=== PATIENT | male | born 1950 | race Caucasian/White ===

== ENCOUNTER 2018-12-13 15:17 | Outpatient (REF) | payer MEDICARE, BC, SELFPAY ==
[2018-12-13 19:15] LABS: Bilirubin Negative (Negative); Blood Negative (Negative); Clarity Clear; Glucose Negative (Negative); Ketones Negative (Negative); Leukocyte Esterase Negative (Negative); Nitrite Negative (Negative); Urobilinogen 0.2 EU/dL (Up TO 0.2); pH 5.5 (5-8)
== END 2018-12-13 15:37 ==
LOC: LBN 15:17
PROVIDERS: PCP Emergency Medicine; Visit Provider Emergency Medicine
DX: R31.9 Hematuria, unspecified (principal)
CPT/HCPCS: 81003

== ENCOUNTER → 2019-01-18 14:07 | Outpatient (BNVA) | payer MEDICARE, BC, SELFPAY | PROVIDERS: PCP Emergency Medicine; Referring Provider Emergency Medicine; Visit Provider Student in an Organized Health Care Education/Training Program | DX: M72.0 Palmar fascial fibromatosis [Dupuytren] (principal); M65.331 Trigger finger, right middle finger; M65.332 Trigger finger, left middle finger | CPT/HCPCS: 99201; 99213 ==

== ENCOUNTER 2019-09-25 19:44 | Outpatient (REF) | payer MEDICARE, BC, SELFPAY | END 2019-09-25 20:04 | LOC: LBN 19:44 | PROVIDERS: PCP Emergency Medicine; Visit Provider Internal Medicine | DX: R30.0 Dysuria (principal) | CPT/HCPCS: 87086 ==

== ENCOUNTER 2019-09-28 06:48 | Outpatient (CLI) | payer MEDICARE, BC, SELFPAY ==
--- NOTE | 2019-09-28 07:56 | DI.US_ITS ---
EXAM: US RENAL CLINICAL HISTORY: urinary frequency and L back tenderness,n34.3 TECHNIQUE: Ultrasound performed using standard protocol. COMPARISON: No exams were available for comparison FINDINGS: The kidneys are normal in size and shape. No renal mass, hydronephrosis or nephrolithiasis. Pre and postvoid urinary bladder volume measurements 98 cc and 53 cc respectively. No focal bladder patholo gy identified. Mild prostatic enlargement at 36 millimeter volume. IMPRESSION: Mild prostatic enlargement, otherwise unremarkable study.
== END 2019-09-28 07:08 ==
PROVIDERS: PCP Emergency Medicine; Visit Provider Internal Medicine
DX: R35.0 Frequency of micturition (principal); M54.5 Low back pain; N40.0 Benign prostatic hyperplasia without lower urinary tract symptoms
CPT/HCPCS: 76770

== ENCOUNTER 2020-05-06 07:18 | Outpatient (CLI) | payer MEDICARE, BC, SELFPAY ==
[2020-05-08 14:13] LABS: SARS-CoV-2 RNA Undetected (Undetected); SARS-CoV-2 Specimen Source Nasopharynx
== END 2020-05-06 07:38 ==
PROVIDERS: PCP Emergency Medicine; Visit Provider Emergency Medicine
DX: Z11.59 Encounter for screening for other viral diseases (principal); Z20.828 Contact with and (suspected) exposure to other viral communicable diseases
CPT/HCPCS: U0003

== ENCOUNTER 2020-09-13 02:38 | Outpatient (CLI) | payer MEDICARE, BC, SELFPAY ==
[2020-09-14 16:45] LABS: COVID-19 RT-PCR Result NEGATIVE (Negative)
== END 2020-09-13 02:58 ==
PROVIDERS: PCP Emergency Medicine; Visit Provider Emergency Medicine
DX: Z11.59 Encounter for screening for other viral diseases (principal)
CPT/HCPCS: U0003

== ENCOUNTER 2021-03-18 10:28 | Outpatient (REF) | payer MEDICARE, BC, SELFPAY ==
[2021-03-18 14:06] LABS: HCT 48.7 % (40.0-50.0); HGB 16.1 g/dL (13.5-17.5); MCH 31.1 pg (27.0-33.0); MCHC 33.1 % (32.0-36.0); MPV 10.7 fL (8.0-11.0); Platelet Count 207 10^3/uL (130-400); RBC 5.18 10^6/uL (4.36-5.78); RDW 11.8 % (11.8-14.1); RDW-SD 41.3 fL; WBC 3.84 10^3/uL (4.4-10.8)
[2021-03-18 14:15] LABS: Bilirubin Negative (Negative); Blood Negative (Negative); Clarity Clear (Clear); Glucose Negative (Negative); Ketones Negative (Negative); Leukocyte Esterase Negative (Negative); Nitrite Negative (Negative); Specific Gravity 1.015 (1.005-1.025); Urobilinogen 0.2 EU/dL (Up TO 0.2)
[2021-03-18 15:31] LABS: Anion Gap 9.6 mmol/L (3-11); BUN 17 mg/dL (7-18); CO2 29.4 mmol/L (21.0-32.0); CREATININE 0.7 mg/dL (0.70-1.30); Calcium 9.4 mg/dL (8.5-10.1); Chloride 104 mmol/L (98-107); Glucose 95 mg/dL (74-106); Potassium 4.1 mmol/L (3.5-5.1); Sodium 143 mmol/L (136-145); TSH 2.16 uIU/mL (0.36-3.74)
[2021-03-18 22:43] LABS: PSA, Diagnostic 0.9 ng/mL (0.0-4.5)
== END 2021-03-18 10:29 | disposition home or self-care (01) ==
LOC: LBN 10:28
PROVIDERS: PCP Emergency Medicine; Visit Provider Emergency Medicine
DX: E03.9 Hypothyroidism, unspecified (principal); I10 Essential (primary) hypertension; N40.1 Benign prostatic hyperplasia with lower urinary tract symptoms
CPT/HCPCS: 80048; 85027; 81003; 84153; 84443

== ENCOUNTER 2021-03-24 01:27 | Outpatient (CLI) | payer MEDICARE, BC, SELFPAY ==
--- NOTE | 2021-03-24 07:00 | DI.CT_ITS ---
Exam(s) CT ABDOMEN PELVIS WO/W EXAM: CT ABDOMEN PELVIS WO/W CLINICAL HISTORY: hematuria,r31.9. TECHNIQUE: Imaging Protocol: Axial computed tomography images with coronal and sagittal reformatted images were created and reviewed CONTRAST MATERIAL: Intravenous: Omnipaque 100cc Oral: None COMPARISON: CT CHEST FOR PULMONARY EMBOLUS from 11/11/2015 FINDINGS: VISUALIZED LUNG BASES: No nodules nor pleural effusions evident. ABDOMEN: There is no ascites. LIVER: There is a 1 centimeters cyst in the anterior left hepatic lobe, as seen on 2016 chest CTA rebecca dy. Other small cysts are also noted in the liver. No new ominous solid lesions seen in the liver. GALLBLADDER/BILIARY: No obvious gallbladder pathology. CBD is not dilated. PANCREAS: No evidence of pancreatic mass nor dilatation of the pancreatic duct. SPLEEN: Spleen is not enlarged. No obvious intrasplenic lesions. Splenic and portal veins are paten t. ADRENALS: There are no significant adrenal masses. KIDNEYS/URETERS:Both kidneys exhibit normal size. No significant focal renal findings. No solid yolanda al masses. No calculi nor hydronephrosis.. No cysts seen. No significant findings in the renal pel ves. Ureters are not dilated. No obvious abnormality seen in the right ureter but left ureter is on ly partially opacified on this study.. ABDOMINAL AORTA: Abdominal aorta is not enlarged. LYMPH NODES:There is no retroperitineal nor paraaortic adenopathy. ABDOMINAL WALL: No evidence of significant anterior abdominal wall hernia. GI: There is no evidence of bowel obstruction, free air, nor abscess. PELVIS: GI: No evidence of appendicitis.No evidence of sigmoid diverticulitis. LYMPH NODES: There is no intrapelvic nor inguinal adenopathy. REPRODUCTIVE: Prostate gland is enlarged. URINARY BLADDER: Urinary bladder is not distended. The urinary bladder wall is slightly thickened an d trabeculated bilaterally. No distinct obvious masses seen within the bladder lumen. OSSEOUS: No significant osseous lesions. IMPRESSION: 1. Both kidneys exhibit normal size and there are no significant focal findings in either kidney. Al so no calculi nor hydronephrosis. Ureters are not completely opacified on this study. 2. Prostate gland is enlarged. Urinary bladder is mildly trabeculated but without evidence of divert iculi nor obvious malignant mural mass evident. 3. Multiple small benign-appearing cysts in the liver are noted. 4. No significant osseous lesions. RADIATION DOSE DELIVERED: 1,644.44mGy.cm Total DLP DATA REPOSITORY: All CT scans at this facility are submitted to the National Radiology Data Registry (NRDR) Dose Index Registry (DIR) with the [employer] (ACR). RADIATION OPTIMIZATION: All CT scans at this facility use at least one of these dose optimization te chniques: automated exposure control; mA and/or kV adjustment per patient size (includes targeted exa ms where dose is matched to clinical indication); or iterative reconstruction.
[2021-03-24] MEDS: Omnipaque 350 MG/ML 100 ML BTL IV (09:20)
[2021-03-24] MEDS: Normal Saline - Diluent 50 ML VIAL IV (09:21)
== END 2021-03-24 01:47 ==
PROVIDERS: PCP Emergency Medicine; Visit Provider Emergency Medicine
DX: R31.9 Hematuria, unspecified (principal); N40.0 Benign prostatic hyperplasia without lower urinary tract symptoms; K76.89 Other specified diseases of liver
CPT/HCPCS: 74178; J3490

== ENCOUNTER → 2021-05-07 10:51 | Outpatient (BNVA) | payer MEDICARE, BC, SELFPAY | PROVIDERS: PCP Emergency Medicine; Referring Provider Emergency Medicine; Visit Provider Nurse Practitioner Gerontology | DX: N40.1 Benign prostatic hyperplasia with lower urinary tract symptoms (principal); R35.0 Frequency of micturition; N13.8 Other obstructive and reflux uropathy; R31.9 Hematuria, unspecified | CPT/HCPCS: 81003; 99205 ==

== ENCOUNTER 2021-08-22 15:29 | Outpatient (REF) | payer MEDICARE, BC, SELFPAY ==
[2021-08-22 16:10] LABS: Bilirubin Negative (Negative); Blood Large (Negative); Clarity Cloudy (Clear); Glucose Negative (Negative); Ketones Negative (Negative); Leukocyte Esterase Negative (Negative); Nitrite Negative (Negative); Specific Gravity > 1.030 (1.005-1.025)
[2021-08-22 16:12] LABS: Crystals Few Calcium Oxalate HPF (Negative); RBC >50 HPF (0-2)
[2021-08-22 16:13] LABS: C & S Indicated? Yes
== END 2021-08-22 15:30 | disposition home or self-care (01) ==
LOC: NCHCN 15:29
PROVIDERS: PCP Emergency Medicine; Visit Provider Urology
DX: R31.9 Hematuria, unspecified (principal)
CPT/HCPCS: 81003; 81015; 87086

== ENCOUNTER → 2021-11-05 08:27 | Outpatient (BNVA) | payer MEDICARE, BC, SELFPAY | PROVIDERS: PCP Emergency Medicine; Referring Provider Emergency Medicine; Visit Provider Nurse Practitioner Gerontology | DX: R31.9 Hematuria, unspecified (principal); N40.0 Benign prostatic hyperplasia without lower urinary tract symptoms | CPT/HCPCS: 81003; 99214 ==

== ENCOUNTER → 2021-11-11 10:48 | Outpatient (BNVA) | payer MEDICARE, BC, SELFPAY | PROVIDERS: PCP Emergency Medicine; Referring Provider Emergency Medicine; Visit Provider Urology | DX: N40.0 Benign prostatic hyperplasia without lower urinary tract symptoms (principal); R31.9 Hematuria, unspecified; N21.0 Calculus in bladder | CPT/HCPCS: 52000; 81003 ==

== ENCOUNTER 2021-11-14 01:18 | Outpatient (CLI) | payer MEDICARE, BC, SELFPAY ==
[2021-11-14 12:38] LABS: Source Nasal/Nares
[2021-11-14 15:57] LABS: COVID-19 PCR Negative (Negative)
== END 2021-11-14 01:19 | disposition home or self-care (01) ==
LOC: LBO 01:18
PROVIDERS: PCP Emergency Medicine; Visit Provider Urology
DX: Z20.822 Contact with and (suspected) exposure to COVID-19 (principal); Z01.818 Encounter for other preprocedural examination
CPT/HCPCS: 87635

== ENCOUNTER 2021-11-17 06:17 | Day surgery (SDC) | payer MEDICARE, BC, SELFPAY ==
[2021-11-17] VITALS (8 sets, daily range): BP systolic 116–145; BP diastolic 59–105; PULSE 46–76; RESP 12–19; TEMP 36.1–36.7; O2SAT 96–100; BMI 21.8
--- NOTE | 2021-11-17 06:56 | HPE_ITS ---
Date of service: 11/17/21 Time of Service: 06:56 Assessment and Plan Assessment and plan (1) Bladder stone: Status: Acute Assessment and plan: For cystoscopy, holmium laser lithotripsy of stone with evacuation of stone fragments. We will also do a bladder biopsy and fulguration of any abnormal mucosa. History of Present Illness History of Present Illness Chief Complaint: Bladder stone Narrative: This is a 71-year-old gentleman who has a history of intermittent gross hematuria. He was evaluated with a CT urogram that was read as having no stones or solid masses in the kidneys. On cystoscopy and re-review of his CT urogram, a large bladder stone was identified. there were also a few abnormal areas of mucosa which may be related to a low grade urothelial cell carcinoma. He presents for cystoscopy, holmium laser lithotripsy, bladder biopsy and fulguration. He had blood in the urine for @ 24 hours after his office cystoscopy. He is not currently seeing any blood in the urine. He has no dysuria. Review of Systems Narrative: No fevers or chills Decreased hearing acuity. No vision change or dysphasia No diabetes or thyroid dysfunction No shortness of breath, cough or hemoptysis No chest pain or palpitations No nausea, vomiting, hepatitis, ulcers, jaundice Hx migraines. No seizures, strokes or peripheral neuropathy No bleeding disorders or anemia No gout PFSH All Active Problems (Updated 11/17/21 @ 07:01 by Neel Blankenship MD) Bladder stone (Acute) Tinnitus, bilateral (Acute) Hematuria (Acute) Sensorineural hearing loss of both ears (Acute) Prostatitis (Acute) Scalp lesion (Acute) Benign prostatic hyperplasia with urinary obstruction (Acute 12/07/12) Dupuytren contracture (Acute 12/08/16) Fatigue (Acute 06/10/12) Fracture of tibia (Acute) right; pinned Hearing loss (Acute 09/09/03) A.D.-normal 07/16 Hemorrhoids (Acute) Migraine (Acute) Tinea pedis of both feet (Acute 12/08/16) Trigger middle finger of left hand (Acute 12/08/16) Elevated coronary artery calcium score (Acute 12/08/16) Surgical History Fracture, Open Treatment tibia Repair of inguinal hernia (07/21/16) Family History Mother , 89 Stroke Father , 86 Essential hypertension Heart disease Hyperlipidemia Stroke Sister Essential hypertension Early onset Alzheimer's dementia Skin cancer Maternal Grandmother No problems noted. Paternal Grandmother No problems noted. Brother , 19 No problems noted. Daughter No problems noted. Daughter No problems noted. Other Myocardial infarction Social History Smoking/Tobacco Use Status: Former Tobacco Use Quit Date: 10/11/73 Second Hand Exposure: Yes (in the past) Smoking risk assessment performed?: Yes Alcohol Intake: current Alcohol Intake frequency: a few times a week Alcohol type: beer Drug use: Never Substance use type: does not use Caregiver/Support person: No Household members: spouse Housing: house Communication Needs: Hard of Hearing Do you need help understanding health information?: Always Pets and animals: No Sexually active: Yes Do you think of yourself as: straight/heterosexual Current gender identity: male What is your relationship status?: How often do you talk on the phone with friends or family?: three or more times per week How often do you get together with friends or relatives?: three or more times per week How often do you attend zoroastrian or gnosticism services?: 1-3 times per year Do you belong to any clubs or organized social groups?: no Panel score (0-1 are the most socially isolated patients): 2 What type of physical activity do you participate in: walking, bicycling and other Details: x-c skiing, hiking Duration: 60-90 minutes/day Frequency: 5-6 times per week Susan/Jew: Roman Catholic Special susan needs: No Seatbelt use: always Helmet use: Yes Helmet use: always 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 Do you feel safe at home: Yes Do you feel safe in your relationship?: Yes Meds Allergies and Home Medications Allergies Allergy/AdvReac Type Severity Reaction Status Date / Time No Known Allergies Allergy Verified 11/17/21 06:24 Home Medications Medication Instructions Recorded Confirmed Type rizatriptan [Maxalt] 10 mg PO PRN tab-cap 02/21/13 11/17/21 History aspirin [Aspirin Low-Strength] 81 mg PO DAILY tab-cap 07/26/13 11/17/21 History triamcinolone acetonide 0.1 % 1 applic TP BID #80 gm 12/13/18 11/17/21 Rx topical cream tamsulosin 0.4 mg capsule 0.4 mg PO QHS #90 cap 03/18/21 11/17/21 Rx amlodipine 5 mg tablet 5 mg PO DAILY #90 tab 04/08/21 11/17/21 Rx Exam Const General: cooperative and comfortable Neck Neck: supple Resp Effort & Inspection: normal respiratory effort Auscultation: clear to auscultation bilaterally Cardio Rate: regular rate Rhythm: regular rhythm GI Palpation: soft and no masses Neuro General: patient alert, patient awake and patient oriented x3 Results Last Vital Signs Temp 36.5 C 11/17/21 06:40 Pulse 57 L 11/17/21 06:40 Resp 18 11/17/21 06:40 BP 141/69 H 11/17/21 06:40 Pulse Ox 99 11/17/21 06:40
--- NOTE | 2021-11-17 06:59 | W.ANESPRE ---
General Info Date of Service Date Performed: 11/17/21 Height: 5 ft 6 in Weight: 61.4 kg Body Mass Index (BMI): 21.8 Surgical Procedure: Operation Date: 11/17/21 07:40 Proposed Procedures Side Surgeon p Cystoscopy with Bladder Biopsy With Fulguration/Laser Lithotripsy of Bladder Stone Neel Blankenship MD Meds Allergies and Home Medications Allergies Allergy/AdvReac Type Severity Reaction Status Date / Time No Known Allergies Allergy Verified 11/17/21 06:24 Home Medication Medication Instructions Recorded rizatriptan [Maxalt] 10 mg PO PRN tab-cap 02/21/13 aspirin [Aspirin Low-Strength] 81 mg PO DAILY tab-cap 07/26/13 triamcinolone acetonide 0.1 % 1 applic TP BID #80 gm 12/13/18 topical cream tamsulosin 0.4 mg capsule 0.4 mg PO QHS #90 cap 03/18/21 amlodipine 5 mg tablet 5 mg PO DAILY #90 tab 04/08/21 Current Visit Medications: Current Medications Generic Name Dose Route Start Last Admin Trade Name Freq PRN Reason Stop Dose Admin Ringer's Solution 1,000 mls @ 80 mls/hr 11/17/21 06:00 IV 12/14/21 23:59 INFUSION RAFAEL Cefazolin Sodium/Dextrose 2 gm in 50 mls @ 100 mls/hr 11/17/21 06:00 Ancef Duplex IVPB 12/14/21 23:59 PREOP RAFAEL IV Miscellaneous Supplies 1 each 11/17/21 06:00 Iv Access IV 12/14/21 23:59 DIRECTED RAFAEL Sodium Chloride 0 ml 11/17/21 06:00 Normal Saline Flush 10 Ml Syr IV 12/14/21 23:59 PRN PRN Sodium Chloride 0 ml 11/17/21 06:00 Normal Saline 10 Ml Vial IJ 12/14/21 23:59 DIRECTED PRN Sterile Water 0 ml 11/17/21 06:00 Water,Injection,Sterile 10 Ml Vial IJ 12/14/21 23:59 DIRECTED PRN PFSH Active Problems Active Problems: Problem Status Onset Code Tinnitus, bilateral H93.13 BPH (benign prostatic hyperplasia) N40.0 Hematuria R31.9 Sensorineural hearing loss of both ears H90.3 Prostatitis N41.9 Scalp lesion L98.9 Benign prostatic hyperplasia with urinary obstruction 12/07/12 N40.1, N13.8 Dupuytren contracture 12/08/16 M72.0 Fatigue 06/10/12 R53.83 Fracture of tibia S82.209A Hearing loss 09/09/03 H91.90 Hemorrhoids K64.9 Migraine G43.909 Tinea pedis of both feet 12/08/16 B35.3 Trigger middle finger of left hand 12/08/16 M65.332 Elevated coronary artery calcium score 12/08/16 R93.1 Surgical History Surgical History Fracture, Open Treatment tibia Repair of inguinal hernia (07/21/16) Tobacco Smoking/Tobacco Use Status: Former Tobacco Use Passive smoking exposure: Yes Second hand exposure: Yes (in the past) Alcohol Alcohol Intake: current Alcohol intake frequency: a few times a week Alcohol type: beer Substance Use Substance use: Never Substance use type: does not use Vital Signs and Lab Results Vital Signs Most Recent Vital Signs in EMR: Most Recent Vital Signs Temp Pulse Resp BP Pulse Ox 36.5 C 57 L 18 141/69 H 99 11/17/21 06:40 11/17/21 06:40 11/17/21 06:40 11/17/21 06:40 11/17/21 06:40 Lab Results Blood Type / Crossmatch: No Data to Display Complete Blood Count: No Data to Display Complete Metabolic Panel: No Data to Display Liver Function Panel: No Data to Display Coagulation Panel: No Data to Display Cardiac Panel: No Data to Display Arterial Blood Gas: No Data to Display Venous Blood Gas: No Data to Display Pancreas Panel: No Data to Display Thyroid Panel: No Data to Display Infectious Disease: Coronavirus (COVID-19)(PCR) Negative (Negative) 11/14/21 09:35 11/14/21 Coronavirus 2019 Source Nasal/Nares 11/14/21 09:35 11/14/21 Blood Cultures: No Data to Display Toxicology Panel: No Data to Display Anesthesia Assessment and Plan Anesthesia History Personal History: PONV Family History: No Family History of Anesthesia Complications Exercise Tolerance Exercise Tolerance: Metabolic Equivalents>4 Pertinent Negatives Pertinent Negatives: No Symptoms of GERD, No Major Cardiovascular Symptoms or Complaints, No Major Pulmonary Symptoms or Complaints and No History of CVA/TIA Cardiac & Pulmonary Exam Cardiac Exam: Normal S1/S2 Heart Sounds Pulmonary Exam: Clear Bilateral Breath Sounds Implantable Cardiac Device Does patient have a Pacemaker or an ICD?: No Airway Exam Known Difficult Airway: No Mallampati Class: 1 Mouth Opening: Normal (> 3cm) Thyromental Distance: Greater than 3 cm Neck Range of Motion: Full ROM Neck Circumference: Normal Teeth Condition: Normal Dentition ASA Classification ASA Score: ASA 2 Emergency Case?: No NPO Status NPO Status: NPO Clears >2 hours, Solids >8 hours Anesthesia Plan Resuscitation Status: Full Code Anesthesia Technique: General Anesthesia Airway Planned: LMA Monitors Used: Standard Monitors
[2021-11-17] MEDS: Lactated Ringers 1,000 ML 80 ML IV (07:04)
[2021-11-17] MEDS: ceFAZolin 2 GM/50 ML BAG IVPB (07:40)
[2021-11-17] MEDS: Lidocaine 2% Jelly 6 ML SYR (07:59)
--- NOTE | 2021-11-17 08:11 | BLADDER_PTH ---
PATIENT: Zechariah Govea LOC: [facility] U#:[id number] AGE/SX: 71/M ROOM: RE11/17/[address]: Neel Blankenship MD : [id number] BED: DIS: 11/17/2021 SPEC #: [id number] RECD: 11/17/21 12:34 STATUS: ZOLTAN REQ #: [id number] MALIA: 11/17/21 08:[address]: Neel Blankenship DEPT: Surgical Specimen RECD BY: Jessica Anna ENTERED: 11/17/21 12:36 SP TYPE: Bladder OTHR DR: Vick Lipscomb DO Tissues: 1 - BLADDER BIOPSY Procedures: GROSS AND MICRO LEVEL 4 Comments: [id number]
--- NOTE | 2021-11-17 08:31 | W.PM.DSUDISC ---
Discharge Plan Disposition Patient Disposition: HOME Condition: Stable Discharge Details Reason For Visit: bladder stone Attending Provider: Neel Blankenship Primary Care Provider: Vick Lipscomb Home Meds and New Rx's Prescriptions: No Action triamcinolone acetonide 0.1 % cream 1 applic TP BID Qty: 80 RF: 4 tamsulosin [Flomax] 0.4 mg capsule 0.4 mg PO QHS Qty: 90 RF: 2 amlodipine 5 mg tablet 5 mg PO DAILY Qty: 90 RF: 3 rizatriptan [Maxalt] 10 MG tablet 10 mg PO PRN RF: 0 aspirin [Aspirin Low-Strength] 81 MG tablet,chewable 81 mg PO DAILY RF: 0 Discharge Instructions Additional Instructions: followup 2 weeks to review pathology results no need to strain urine Activity:: Activity as Tolerated Shower/Bathe:: 24 hours Diet:: As Tolerated Discharge Orders Discharge Orders: Discharge Order (Routine); Ordered 11/17/21 Ordered By: Neel Blankenship DS: Diagnosis Discharge Diagnosis (1) Bladder stone: Status: Acute
--- NOTE | 2021-11-17 08:34 | W.PM.OP ---
Date of service: 11/17/21 Time of Service: 08:34 Operative Note Operative Note DATE OF PROCEDURE: 11/17/21 PRE-OP DIAGNOSIS: Bladder stone POST-OP DIAGNOSIS: same PROCEDURE: cystoscopy, holmium laser lithotripsy of bladder stone with evacuation of stone fragments, bladder biopsy with fulguration SURGEON: Neel Blankenship ANESTHESIA TYPE: Local By Surgeon and General LMA/ETT Refer to Anesthesia Record ESTIMATED BLOOD LOSS: 30 PATHOLOGY: other (1. Bladder stone 2. Bladder biopsy) COMPLICATIONS: None Patient was transported to: PACU Patient's condition: stable Implants: none Indications: This is a 71-year-old gentleman who has a history of gross hematuria. On CT urogram, he had a stone in the bladder. On cystoscopy, we identified the stone as well as a few erythematous areas on his bladder mucosa. He presents for cystoscopy, holmium laser lithotripsy of his bladder stone, bladder biopsy and fulguration. Findings: Large stone within the bladder Small erythematous area of bladder mucosa Procedure Description: The patient was brought to the operating room on 11/16/2021. He was given preoperative IV antibiotics. After successful induction of general anesthesia, he was placed in the dorsal lithotomy position. His genitalia was prepped and draped sterilely. 2% Xylocaine jelly was instilled into the urethra to act as a local anesthetic. A 22 [place] rigid cystoscope was passed through the urethra into the bladder. The urethra and bladder were inspected with a 30 degree lens. The pendulous, bulbar and membranous urethra was all appeared normal with no strictures. The prostatic urethra showed lateral lobe enlargement with a very small median lobe. Behind the median lobe, a bladder stone was identified. The stone was measured at approximately 3 to 4 cm. I used a 960 ?m holmium laser fiber to fragment the stone. We used a power setting of 800 and a rate of 8. The stone fragmented quite easily. I was able to irrigate all the stone fragments from the bladder. We sent the stone fragments to the laboratory for chemical analysis. Reinspection of the bladder showed previously identified erythematous area of the bladder mucosa up towards the dome. I was able to biopsy this area using cold cup biopsy forceps. The entire area measured less than a centimeter. The biopsy was sent to pathology for permanent section. We then cauterized the biopsy site using bipolar Bugbee. The patient tolerated this procedure well with no complications.
--- NOTE | 2021-11-17 09:23 | W.ANESPOSTOP ---
Postoperative Evaluation Date, Time and Location Date Performed: 11/17/21 Time Performed: 09:21 Patient Location: Day Surgery Unit Vital Signs Most Recent Imported Vital Signs: Most Recent Vital Signs Temp Pulse Resp BP Pulse Ox 36.3 C L 49 L 19 129/65 100 11/17/21 09:09 11/17/21 09:09 11/17/21 09:09 11/17/21 09:09 11/17/21 09:09 Pain Score Most Recent Pain Score: Most Recent Pain Score Pain Level 0 11/17/21 09:09 Assessment Mental Status: Awake (Alert & Oriented to Patient Baseline) Airway and Respiratory Function: Patent airway with normal (patient baseline) respiratory exam Cardiovascular Function: Hemodynamically Stable Hydration Status: Adequately Hydrated Nausea & Vomiting: No Nausea or Vomiting Pain: Pt. Denies Any Pain Peripheral Nerve Block: Patient did not receive a nerve block
== END 2021-11-17 10:15 | disposition home or self-care (01) ==
PROVIDERS: PCP Emergency Medicine; Visit Provider Urology
PROC: 0TBB8ZX Excision of Bladder, Via Natural or Artificial Opening Endoscopic, Diagnostic (ICD-10-PCS; CPT 52204; principal; 2021-11-17 07:30)
DX: N21.0 Calculus in bladder (principal); R31.0 Gross hematuria
CPT/HCPCS: 52204; 52318; 88305; 82365; J0690; J1885; J2001; J2405; J2704

== ENCOUNTER → 2021-12-02 10:47 | Outpatient (BNVA) | payer MEDICARE, BC, SELFPAY | PROVIDERS: PCP Family Medicine; Referring Provider Emergency Medicine; Visit Provider Urology | DX: N21.0 Calculus in bladder (principal); R31.9 Hematuria, unspecified | CPT/HCPCS: 99214 ==

== ENCOUNTER 2021-12-25 03:40 | Outpatient (CLI) | payer MEDICARE, BC, SELFPAY ==
[2021-12-25 10:32] LABS: Anion Gap 6.2 mmol/L (3-11); BUN 18 mg/dL (7-18); CO2 30.8 mmol/L (21.0-32.0); CREATININE 0.7 mg/dL (0.70-1.30); Calcium 8.8 mg/dL (8.5-10.1); Calculated LDL 120 mg/dL (<100); Chloride 104 mmol/L (98-107); Cholesterol 183 mg/dL (<200); Glucose 86 mg/dL (74-106); HDL Cholesterol 58 mg/dL (40-60); Potassium 4.5 mmol/L (3.5-5.1); Sodium 141 mmol/L (136-145); Triglyceride 26 mg/dL (<150)
[2021-12-25 22:43] LABS: PSA, Screening 0.8 ng/mL (0.0-6.5)
== END 2021-12-25 03:41 | disposition home or self-care (01) ==
LOC: LBO 03:40
PROVIDERS: PCP Family Medicine; Visit Provider Emergency Medicine
DX: N13.8 Other obstructive and reflux uropathy (principal); N40.1 Benign prostatic hyperplasia with lower urinary tract symptoms; Z12.5 Encounter for screening for malignant neoplasm of prostate; I10 Essential (primary) hypertension
CPT/HCPCS: 36415; 80048; 80061; 84153

== ENCOUNTER → 2022-06-09 01:46 | Outpatient (CLI) | payer MEDICARE, BC, SELFPAY ==
--- NOTE | 2022-06-09 06:30 | DI.US_ITS ---
Exam(s) US RENAL EXAM: US RENAL CLINICAL HISTORY: monitor known bladder stone, N21.0 TECHNIQUE: Ultrasound performed using standard protocol. COMPARISON: US US RENAL from 09/28/2019 FINDINGS: The kidneys are normal in size and shape. There is no evidence of a renal mass, hydronephrosis, or n ephrolithiasis. Urinary bladder is unremarkable in appearance, except for a slight wall thickening.. Ureteral jets were noted bilaterally. Pre and postvoid urinary bladder volume measurements were 27 1 cc and 35 cc respectively. Prostatic volume, 39 cc. IMPRESSION: Negative renal ultrasound. DATA REPOSITORY:
== END ==
PROVIDERS: PCP Family Medicine; Visit Provider Urology
DX: N21.0 Calculus in bladder (principal)
CPT/HCPCS: 76770

== ENCOUNTER → 2022-06-12 15:28 | Outpatient (BNVA) | payer MEDICARE, BC, SELFPAY | PROVIDERS: PCP Family Medicine; Referring Provider Family Medicine; Visit Provider Urology | DX: N40.1 Benign prostatic hyperplasia with lower urinary tract symptoms (principal); N13.8 Other obstructive and reflux uropathy; N21.0 Calculus in bladder | CPT/HCPCS: 99214 ==

== ENCOUNTER → 2022-09-09 08:27 | Outpatient (BNVA) | payer MEDICARE, BC, SELFPAY | PROVIDERS: PCP Family Medicine; Referring Provider Family Medicine; Visit Provider Surgery | DX: Z12.11 Encounter for screening for malignant neoplasm of colon (principal) ==

== ENCOUNTER 2022-09-24 07:13 | Day surgery (SDC) | payer MEDICARE, BC, SELFPAY ==
--- NOTE | 2022-09-23 20:20 | PDOC.DSDIS_ITS ---
Date of service: 09/24/22 Time of Service: 08:35 Discharge Plan Disposition Patient Disposition: Home Condition: Good Discharge Details Reason For Visit: screening colonoscopy Attending Provider: Gamaliel Kowalski Primary Care Provider: Belle Woodward Home Meds and New Rx's Prescriptions: Continued triamcinolone acetonide 0.1 % cream 1 applic TP BID Qty: 80 4RF losartan 50 mg tablet 25 mg PO DAILY Qty: 90 3RF rizatriptan [Maxalt] 10 MG tablet 10 mg PO PRN Label Comments: 07/21/16 stated he does not take, DCW aspirin [Aspirin Low-Strength] 81 MG tablet,chewable 81 mg PO DAILY Label Comments: 04/08/18 taking every other day for the past few days due to his epistaxis. [facility] tamsulosin [Flomax] 0.4 mg capsule 0.4 mg PO QHS Qty: 90 3RF amlodipine 5 mg tablet 5 mg PO DAILY Qty: 90 3RF Discontinued polyethylene glycol 3350 17 gram/dose powder 238 g PO ONCE Qty: 238 0RF Rx Instructions: take per colonoscopy instructions bisacodyl [Dulcolax (bisacodyl)] 5 mg tablet,delayed release (DR/EC) 5 mg PO ONCE Qty: 4 0RF Rx Instructions: take per colonoscopy instructions Discharge Instructions Additional Instructions: 1. If tolerated, consume a soft, low fiber diet for 1-2 days. 2[address] Do not drive, drink alcohol, operate machinery, make critical decisions, or do activities that require coordination or balance for 24 hours. 3. Because air was put into your colon during the procedure, expelling air from your rectum (passing gas or farting) is normal. 4. You may not have a bowel movement for 1-3 days because of the colonoscopy prep. This is normal. 5. Go directly to the emergency room if you notice any of the following: Develop chills (warm to touch), or if you have a thermometer and your temperature is above 101 Difficulty breathing or difficultly swallowing Persistent vomiting Severe abdominal pain, other than gas cramps Severe chest pain Black, tarry stools Any bleeding ? exceeding one tablespoon 6. Call your physician if the site where your intravenous was started becomes red, swollen, painful, and warm to touch. 7. Your physician has reviewed your pre-procedure medications. Please continue to take those medications as previously ordered. You will be given specific information/education regarding any changes to your medications before leaving. Activity:: Activity as Tolerated Diet:: As Tolerated Discharge Orders Discharge Orders: Discharge Order (Routine); Ordered 09/23/22 Ordered By: Gamaliel Kowalski DS: Diagnosis Discharge Diagnosis (1) Screening for colon cancer: Status: Acute Asessment and Plan: Your colonoscopy was normal Follow-up for your next colonoscopy in 10 years
--- NOTE | 2022-09-23 20:22 | W.COLOREPORT ---
Date of service: 09/24/22 Time of Service: 08:41 Colonoscopy Report Date of procedure: 09/24/22 Pre-op diagnosis general: Routine health maintenance screening colonoscopy Post-op diagnosis procedure note: same Procedure: Screening colonoscopy Surgeon: Gamaliel Kowalski Anesthesia Type: General:No Airway Estimated blood loss (mL): 0 Pathology: none sent Complications: None Disposition: same day Indications: Zechariah is a 72-year-old male here for his second screening colonoscopy Prep: Miralax/Dulcolax Procedure Start Time: 08:11 Procedure End Time: 08:29 Retraction Time: 15 Findings: Normal colonoscopy Procedure Description: After the induction of monitored anesthetic care, and with the patient in left lateral decubitus position, I began by performing an external anorectal exam.? Perineum and skin were normal, as was the anal verge.? There is an external skin tag.? Next, I performed a digital rectal exam.? I did not appreciate any abnormal findings.? Next, I advanced a colonoscope into the rectal vault.? I performed retroflexion.? There is a grade 1 internal hemorrhoid.? Using insufflation, I then advanced the colonoscope beyond the rectal folds and into the sigmoid colon before advancing towards the cecum.? The quality of the prep was adequate.? The scope was noted to be in the cecum by identification of the ileocecal valve and appendiceal orifice.? I then began withdrawing the colonoscope using repeated irrigation as necessary for full evaluation of the colonic mucosa. ?Once the scope was withdrawn to the level of the rectum, great care was taken to examine portions of the rectal folds.? Finally, the scope was withdrawn and the patient was brought to the same-day surgery recovery unit as the anesthetic wore off. ?The findings and instructions were shared with the patient prior to discharge.
[2022-09-24 07:45] VITALS: BP 127/93; PULSE 57; RESP 15; TEMP 36.4; O2SAT 98
[2022-09-24] MEDS: Lactated Ringers 1,000 ML 80 ML IV (07:50)
--- NOTE | 2022-09-24 07:51 | W.ANESPRE ---
General Info Date of Service Date Performed: 09/24/22 Height: 5 ft 6 in Weight: 58.6 kg Body Mass Index (BMI): 20.8 Surgical Procedure: Operation Date: 09/24/22 08:20 Proposed Procedure Side Surgeon dax Kowalski MD Meds Allergies and Home Medications Allergies Allergy/AdvReac Type Severity Reaction Status Date / Time No Known Allergies Allergy Verified 09/24/22 07:43 Home Medication Medication Instructions Recorded rizatriptan 10 mg tablet (Maxalt) 10 mg PO PRN 02/21/13 aspirin 81 mg chewable tablet 81 mg PO DAILY 07/26/13 (Aspirin Low-Strength) triamcinolone acetonide 0.1 % 1 applic topical BID eczema #80 12/13/18 topical cream grams tamsulosin 0.4 mg capsule (Flomax) 0.4 mg PO QHS #90 caps 12/26/21 losartan 50 mg tablet 25 mg PO DAILY #90 tabs 01/20/22 amlodipine 5 mg tablet 5 mg PO DAILY #90 tabs 03/16/22 Current Visit Medications: Current Medications Generic Name Dose Route Start Last Admin Trade Name Freq PRN Reason Stop Dose Admin Hyoscyamine Sulfate 0.125 mg 09/23/22 20:23 Hyoscyamine 0.125 Mg Sl/Oral/Chew SL DIRECTED PRN Ringer's Solution 1,000 mls @ 80 mls/hr 09/24/22 06:00 IV 10/23/22 23:59 INFUSION [facility] IV Miscellaneous Supplies 1 each 09/24/22 06:00 Iv Access IV 10/23/22 23:59 DIRECTED [facility] Ondansetron HCl 4 mg 09/23/22 20:23 Ondansetron 4 Mg/2 Ml Vial IVP Q4H PRN PRN Nausea / Vomiting Sodium Chloride 0 ml 09/24/22 06:00 Normal Saline Flush 10 Ml Syr IV 10/23/22 23:59 PRN PRN Sodium Chloride 0 ml 09/24/22 06:00 Normal Saline 10 Ml Vial IJ 10/23/22 23:59 DIRECTED PRN Sterile Water 0 ml 09/24/22 06:00 Water,Injection,Sterile 10 Ml Vial IJ 10/23/22 23:59 DIRECTED PRN PFSH Active Problems Active Problems: Problem Status Onset Code Elevated coronary artery calcium score 12/08/16 R93.1 Trigger middle finger of left hand 12/08/16 M65.332 Tinea pedis of both feet 12/08/16 B35.3 Migraine G43.909 Dupuytren contracture 12/08/16 M72.0 Benign prostatic hyperplasia with urinary obstruction 12/07/12 N40.1, N13.8 Sensorineural hearing loss of both ears H90.3 Essential hypertension 07/24/13 I10 COVID-19 ~05/19/22 U07.1 Medical History Medical History Chronic rhinitis Fracture of tibia Prostatitis Tinnitus, bilateral Surgical History Surgical History Bladder stone (~11/2021) History of right inguinal hernia repair (12/08/16) History of tibial fracture Tobacco Smoking/Tobacco Use Status: Former Tobacco Use Passive smoking exposure: Yes Second hand exposure: Yes (in the past) Alcohol Alcohol Intake: current Alcohol intake frequency: a few times a week Alcohol type: beer Substance Use Substance use: Never Substance use type: does not use Vital Signs and Lab Results Vital Signs Most Recent Vital Signs in EMR: Most Recent Vital Signs Temp Pulse Resp BP Pulse Ox 36.4 C L 57 L 15 127/93 H 98 09/24/22 07:45 09/24/22 07:45 09/24/22 07:45 09/24/22 07:45 09/24/22 07:45 Lab Results Blood Type / Crossmatch: No Data to Display Complete Blood Count: No Data to Display Complete Metabolic Panel: No Data to Display Liver Function Panel: No Data to Display Coagulation Panel: No Data to Display Cardiac Panel: No Data to Display Arterial Blood Gas: No Data to Display Venous Blood Gas: No Data to Display Pancreas Panel: No Data to Display Thyroid Panel: No Data to Display Infectious Disease: No Data to Display Blood Cultures: No Data to Display Toxicology Panel: No Data to Display Anesthesia Assessment and Plan Anesthesia History Personal History: PONV Family History: No Family History of Anesthesia Complications Exercise Tolerance Exercise Tolerance: Metabolic Equivalents>4 Pertinent Negatives Pertinent Negatives: No Symptoms of GERD Cardiac & Pulmonary Exam Cardiac Exam: Normal S1/S2 Heart Sounds Pulmonary Exam: Clear Bilateral Breath Sounds Implantable Cardiac Device Does patient have a Pacemaker or an ICD?: No Airway Exam Known Difficult Airway: No Mallampati Class: 1 Mouth Opening: Normal (> 3cm) Thyromental Distance: Greater than 3 cm Neck Range of Motion: Full ROM Neck Circumference: Normal Teeth Condition: Normal Dentition ASA Classification ASA Score: ASA 2 Emergency Case?: No NPO Status NPO Status: NPO Clears >2 hours, Solids >8 hours Anesthesia Plan Resuscitation Status: Full Code Anesthesia Technique: General Anesthesia Airway Planned: Natural Airway Monitors Used: Standard Monitors
[2022-09-24 08:28] VITALS: BMI 20.8
[2022-09-24 08:35] VITALS: BP 110/69; PULSE 58; RESP 16; TEMP 36; O2SAT 100
[2022-09-24 08:59] VITALS: BP 121/71; PULSE 70; RESP 16; TEMP 36.1; O2SAT 99
--- NOTE | 2022-09-24 09:32 | W.ANESPOSTOP ---
Postoperative Evaluation Date, Time and Location Date Performed: 09/24/22 Time Performed: 09:32 Patient Location: Day Surgery Unit Vital Signs Most Recent Imported Vital Signs: Most Recent Vital Signs Temp Pulse Resp BP Pulse Ox 36.1 C L 70 16 121/71 99 09/24/22 08:59 09/24/22 08:59 09/24/22 08:59 09/24/22 08:59 09/24/22 08:59 Pain Score Most Recent Pain Score: Most Recent Pain Score Pain Level 0 09/24/22 08:59 Assessment Mental Status: Awake (Alert & Oriented to Patient Baseline) Airway and Respiratory Function: Patent airway with normal (patient baseline) respiratory exam Cardiovascular Function: Hemodynamically Stable Hydration Status: Adequately Hydrated Nausea & Vomiting: No Nausea or Vomiting Pain: Pt. Denies Any Pain Peripheral Nerve Block: Patient did not receive a nerve block
== END 2022-09-24 09:12 | disposition home or self-care (01) ==
PROVIDERS: PCP Family Medicine; Visit Provider Surgery
PROC: 0DJD8ZZ Inspection of Lower Intestinal Tract, Via Natural or Artificial Opening Endoscopic (ICD-10-PCS; CPT 45378; principal; 2022-09-24 08:15)
DX: Z12.11 Encounter for screening for malignant neoplasm of colon (principal); I10 Essential (primary) hypertension
CPT/HCPCS: G0121

== ENCOUNTER 2022-09-28 02:51 | Outpatient (CLI) | payer MEDICARE, BC, SELFPAY ==
[2022-09-28 12:47] LABS: Calculated LDL 111 mg/dL (<100); Cholesterol 184 mg/dL (<200); HDL Cholesterol 67 mg/dL (40-60); Triglyceride 31 mg/dL (<150)
[2022-09-28 17:46] LABS: CRP, High Sensitivity <0.34 mg/L (See Note)
== END 2022-09-28 02:52 | disposition home or self-care (01) ==
LOC: LOS 02:51
PROVIDERS: PCP Family Medicine; Visit Provider Family Medicine
DX: I10 Essential (primary) hypertension (principal); Z00.00 Encounter for general adult medical examination without abnormal findings
CPT/HCPCS: 36415; 80061; 86141

== ENCOUNTER 2023-04-06 02:08 | Outpatient (CLI) | payer MEDICARE, BC, SELFPAY ==
[2023-04-06 15:00] LABS: ALT 34 U/L (16-63); AST 25 U/L (15-37); Albumin 3.9 g/dL (3.4-5.0); Alkaline Phosphatase 48 U/L (46-116); Anion Gap 6.2 mmol/L (3-11); BUN 15 mg/dL (7-18); Bilirubin, Total 0.8 mg/dL (0.2-1.0); CO2 30.8 mmol/L (21.0-32.0); CREATININE 0.8 mg/dL (0.70-1.30); Calcium 8.9 mg/dL (8.5-10.1); Chloride 105 mmol/L (98-107); Cholesterol 144 mg/dL (<200); Estimated GFR 94.62 (mL/min/1.73m2); Glucose 98 mg/dL (74-106); HDL Cholesterol 67 mg/dL (40-60); Potassium 4.7 mmol/L (3.5-5.1); Sodium 142 mmol/L (136-145); Total Protein 6.3 g/dL (6.4-8.2)
[2023-04-06 15:01] LABS: Triglyceride <25 mg/dL (<150)
[2023-04-06 15:13] LABS: LDL CHOLESTEROL 66 mg/dL (<100)
[2023-04-06 19:10] LABS: PSA, Screening 0.7 ng/mL (<=6.5)
== END 2023-04-06 02:09 | disposition home or self-care (01) ==
LOC: LOS 02:08
PROVIDERS: PCP Family Medicine; Visit Provider Family Medicine
DX: I10 Essential (primary) hypertension (principal); Z00.00 Encounter for general adult medical examination without abnormal findings; R93.1 Abnormal findings on diagnostic imaging of heart and coronary circulation; Z13.6 Encounter for screening for cardiovascular disorders; Z12.5 Encounter for screening for malignant neoplasm of prostate
CPT/HCPCS: 36415; 80053; 80061; 83721; 84153

== ENCOUNTER 2024-01-01 09:45 | Outpatient (REF) | payer MEDICARE, BC, SELFPAY | END 2024-01-01 09:46 | disposition home or self-care (01) | LOC: LBN 09:45 | PROVIDERS: PCP Family Medicine; Visit Provider Physician Assistant | DX: N39.0 Urinary tract infection, site not specified (principal) | CPT/HCPCS: 87077; 87086; 87186 ==

== ENCOUNTER → 2024-01-11 03:38 | Outpatient (CLI) | payer MEDICARE, BC, SELFPAY ==
--- NOTE | 2024-01-11 07:00 | DI.US_ITS ---
Exam(s) US RENAL EXAM: US RENAL CLINICAL HISTORY: recurrent uti, ? recurrent bladder stone,,n39.0,n21.0,n40.1,n13.8 TECHNIQUE: Ultrasound of both kidneys performed using standard protocol. COMPARISON: CT CT ABDOMEN PELVIS WO/W from 03/24/2021 US US RENAL from 06/09/2022 FINDINGS: RIGHT KIDNEY: Measures 9 cm in length. No cysts evident. Normal cortical thickness and corticomedullary differentia tion .No solid masses No intrarenal calculi nor hydronephrosis. LEFT KIDNEY: Measures 9 cm in length. No cysts evident. Normal cortical thickness and corticomedullary differenti aion. No solids masses. No intrarenal calculi nor hydonephrosis. URINARY BLADDER: Prevoid volume is 252 cc Postvoid volume is 45 cc Bladder wall is somewhat trabeculated but without a distinct mass nor diverticuli evident. The prostate gland is enlarged, measuring approximately 5.7cm wide by 4 cm AP by 5 cm craniocaudal. Ureterovesical jets: Both identified and appear symmetrical IMPRESSION: 1. No significant ultrasound findings in the kidneys. 2. Enlarged prostate gland. Mildly trabeculated urinary bladder wall. 45 cc residual volume in the bladder postvoid. DATA REPOSITORY:
== END ==
PROVIDERS: PCP Family Medicine; Visit Provider Family Medicine
DX: N21.0 Calculus in bladder (principal); N40.1 Benign prostatic hyperplasia with lower urinary tract symptoms; N13.8 Other obstructive and reflux uropathy; N39.0 Urinary tract infection, site not specified; N32.89 Other specified disorders of bladder
CPT/HCPCS: 76770

== ENCOUNTER → 2024-02-01 15:14 | Outpatient (BNVA) | payer MEDICARE, BC, SELFPAY | PROVIDERS: PCP Family Medicine; Referring Provider Family Medicine; Visit Provider Urology | DX: N39.0 Urinary tract infection, site not specified (principal) | CPT/HCPCS: 99214 ==

== ENCOUNTER 2024-03-15 05:27 | Outpatient (CLI) | payer MEDICARE, BC, SELFPAY ==
[2024-03-15 12:34] LABS: Anion Gap 7.2 mmol/L (3-11); BUN 17 mg/dL (7-18); CO2 30.8 mmol/L (21.0-32.0); CREATININE 0.9 mg/dL (0.70-1.30); Calcium 9.1 mg/dL (8.5-10.1); Chloride 105 mmol/L (98-107); Estimated GFR 90.74 (mL/min/1.73m2); Glucose 94 mg/dL (74-106); Potassium 3.8 mmol/L (3.5-5.1); Sodium 143 mmol/L (136-145)
== END 2024-03-15 05:28 | disposition home or self-care (01) ==
LOC: LOS 05:27
PROVIDERS: PCP Family Medicine; Visit Provider Family Medicine
DX: I10 Essential (primary) hypertension (principal)
CPT/HCPCS: 36415; 80048

== ENCOUNTER 2024-09-13 17:07 | Outpatient (REF) | payer MEDICARE, BC, SELFPAY ==
[2024-09-15 11:23] LABS: Lyme Ab w Rflx to Lyme Confirm Negative (Negative)
[2024-09-16 15:02] LABS: Anaplasma phagocytophilum Negative (Negative); B. miyamotoi PCR Negative (Negative); Babesia divergens/MO-1 Negative (Negative); Babesia duncani Negative (Negative); Babesia microti Negative (Negative); Ehrlichia chaffeensis Negative (Negative); Ehrlichia ewingii/canis Negative (Negative); Ehrlichia muris eauclairensis Negative (Negative)
== END 2024-09-13 17:08 | disposition home or self-care (01) ==
LOC: LBN 17:07
PROVIDERS: PCP Family Medicine; Visit Provider Family Medicine
DX: S40.869A Insect bite (nonvenomous) of unspecified upper arm, initial encounter (principal); W57.XXXA Bitten or stung by nonvenomous insect and other nonvenomous arthropods, initial encounter; R41.89 Other symptoms and signs involving cognitive functions and awareness
CPT/HCPCS: 87798; 86618

== ENCOUNTER 2025-01-30 13:56 | Outpatient (CLI) | payer MEDICARE, BC, SELFPAY | END 2025-01-30 13:57 | disposition home or self-care (01) | LOC: ORDER INT 15:42 | PROVIDERS: PCP Family Medicine; Visit Provider Urology | DX: N21.0 Calculus in bladder (principal) | CPT/HCPCS: 76775 ==

== ENCOUNTER 2025-02-26 04:09 | Outpatient (CLI) | payer MEDICARE, BC, SELFPAY ==
[2025-02-26 12:19] LABS: Anion Gap 5.6 mmol/L (3-11); BUN 14 mg/dL (7-18); CO2 32.4 mmol/L (21.0-32.0); CREATININE 0.7 mg/dL (0.70-1.30); Calcium 9.3 mg/dL (8.5-10.1); Chloride 104 mmol/L (98-107); Estimated GFR 97.29 (mL/min/1.73m2); Glucose 54 mg/dL (74-106); Potassium 3.8 mmol/L (3.5-5.1); Sodium 142 mmol/L (136-145)
== END 2025-02-26 04:10 | disposition home or self-care (01) ==
PROVIDERS: PCP Family Medicine; Visit Provider Family Medicine
DX: I10 Essential (primary) hypertension (principal)
CPT/HCPCS: 36415; 80048

== ENCOUNTER 2025-03-02 01:32 | Outpatient (CLI) | payer MEDICARE, BC, SELFPAY ==
[2025-03-02 08:54] LABS: ALT 47 U/L (16-63); AST 40 U/L (15-37); Albumin 3.9 g/dL (3.4-5.0); Alkaline Phosphatase 79 U/L (46-116); Anion Gap 5.9 mmol/L (3-11); BUN 18 mg/dL (7-18); Bilirubin, Total 0.7 mg/dL (0.2-1.0); CO2 30.1 mmol/L (21.0-32.0); CREATININE 0.8 mg/dL (0.70-1.30); Chloride 104 mmol/L (98-107); Estimated GFR 93.45 (mL/min/1.73m2); Glucose 96 mg/dL (74-106); Potassium 4.4 mmol/L (3.5-5.1); Sodium 140 mmol/L (136-145); Total Protein 6.4 g/dL (6.4-8.2)
== END 2025-03-02 01:33 | disposition home or self-care (01) ==
LOC: LBO 01:32
PROVIDERS: PCP Family Medicine; Visit Provider Family Medicine
DX: E16.2 Hypoglycemia, unspecified
CPT/HCPCS: 36415; 80053

== ENCOUNTER → 2025-03-23 08:53 | Outpatient (BNVA) | payer MEDICARE, BC, SELFPAY | PROVIDERS: PCP Family Medicine; Referring Provider Family Medicine; Visit Provider Urology | DX: N21.0 Calculus in bladder (principal); N13.8 Other obstructive and reflux uropathy; N40.1 Benign prostatic hyperplasia with lower urinary tract symptoms | CPT/HCPCS: 81003; 52000 ==

== ENCOUNTER → 2025-09-20 10:25 | Outpatient (BNVA) | payer MEDICARE, BC, SELFPAY | PROVIDERS: PCP Family Medicine; Referring Provider Family Medicine; Visit Provider Urology | DX: N21.0 Calculus in bladder (principal) | CPT/HCPCS: 76857 ==